=== PATIENT | female | born 1935 | race Caucasian/White ===

== ENCOUNTER 2016-05-28 17:20 | Emergency (ER) | payer OTHER, MEDICAID ==
[2016-05-28] MEDS ORDERED: NS 1,000 ML IV ONE (18:23)
--- NOTE | 2016-05-28 18:23 | EDPHY ---
H & P Stated Complaint: Memory and fatigue issues for several days. Time Seen by Provider: 05/28/16 18:23 HPI/ROS: CHIEF COMPLAINT: Fatigue, mild confusion HISTORY OF PRESENT ILLNESS: The patient presents to the ED with 5 days of fatigue and mild confusion. The patient reportedly has had no focal numbness or weakness. She has had no dysarthria, headache or a facial. The patient has had episodic bouts of confusion according to her son. The patient has not had a fever. She denies any complaints of headache, cough, fever, pain or recent trauma. The patient reportedly was incontinent while sleeping last night. The patient has not been on recent antibiotics. REVIEW OF SYSTEMS: A comprehensive 10 point review of systems is otherwise negative aside from elements mentioned in the history of present illness. Source: Patient - Personal History Current Tetanus/Diphtheria Vaccine: No Current Tetanus Diphtheria and Acellular Pertussis (TDAP): No Tetanus Vaccine Date: 2005 - Medical/Surgical History Hx Asthma: No Hx Chronic Respiratory Disease: No Hx Diabetes: No Hx Cardiac Disease: No Hx Renal Disease: No Hx Cirrhosis: No Hx Alcoholism: No Hx HIV/AIDS: No Hx Splenectomy or Spleen Trauma: No Other PMH: back surgery, ORIF R leg, unknown other issues. - Family History Significant Family History: No pertinent family hx - Social History Smoking Status: Never smoked Alcohol Use: None Drug Use: None - Physical Exam Exam: General Appearance: Alert, no distress Eyes: Pupils equal and round no pallor or injection ENT, Mouth: Mucous membranes moist Respiratory: There are no retractions, lungs are clear to auscultation Cardiovascular: Regular rate and rhythm Gastrointestinal: Abdomen is soft and nontender, no masses, bowel sounds normal Neurological: Alert and oriented x3, 5/5 strength noted all 4 extremities, sensation intact to light touch, normal gait observed in the ED, cranial nerves 2-12 intact Skin: Warm and dry, no rashes Musculoskeletal: Neck is supple nontender Extremities: symmetrical, full range of motion Constitutional: Initial Vital Signs Temperature (C) 37.0 C 05/28/16 17:32 Heart Rate 70 05/28/16 17:32 Respiratory Rate 18 05/28/16 17:32 Blood Pressure 162/94 H 05/28/16 17:32 O2 Sat (%) 97 05/28/16 17:32 O2 Delivery Mode Room Air Allergies/Adverse Reactions: scallops Allergy (Intermediate, Uncoded 04/25/11 11:44) Home Medications: Medication Instructions Recorded CARVEDILOL PHOSPHATE [Coreg Cr] 12.5 mg PO BID 03/18/11 CODEINE SULF [Codeine Sulfate] 60 mg PO ONCE 03/18/11 Cholecalciferol (Vitamin D3) 2,000 unit PO DAILY 03/18/11 [Vitamin D3] Clorazepate Dipotassium 15 mg PO HS PRN 03/18/11 Methocarbamol [Robaxin 750 mg (*)] 750 mg PO TID 03/18/11 Pantoprazole Sodium [Protonix] 40 mg PO DAILY 03/18/11 Pregabalin [Lyrica] 200 mg PO TID 03/18/11 Sertraline HCl [Zoloft] 200 mg PO BID 03/18/11 Ascorbic Acid [Vitamin C 500 mg 1,000 mg PO BID 02/05/12 (OTC)] Docusate Sodium [Colace 100 MG (*)] 200 mg PO DAILY 02/05/12 HYDROcodone/APAP 10/325 [[place] 2 tab PO TID 02/05/12 10/325 (RX)] Levothyroxine [Synthroid 100 mcg 100 mcg PO DAILY 02/05/12 (*)] Pharmacist Completed 02-04-02/05/12 methYLPHENIDATE HCL [Ritalin 10mg 20 mg PO DAILY PRN 02/05/12 (RX)] morphINE IR [morphINE IR 15 mg (*)] 15 - 30 mg PO PRN PRN 02/05/12 Cephalexin [Keflex] 500 mg PO TID #15 cap 05/28/16 Medical Decision Making ED Course/Re-evaluation: The patient presents to the ED with complaints of mild confusion. The patient is noted to be neurologically intact. She is afebrile with stable vital signs. Screening laboratory studies are obtained which demonstrate no evidence of anemia. The patient has no evidence of significant metabolic derangement but does have evidence of a possible urinary tract infection. At this point time I see no evidence of an obvious stroke. I do feel would be reasonable to treat her her mild episodic confusion as a likely consequence of a urinary tract infection. The patient will be discharged home with a 5 day course of Keflex. The patient and her family have been instructed to return to the ED for severe headache, vomiting, focal neurologic symptoms, worsening symptoms or other concerns. Otherwise the patient should follow up with her primary care provider Dr. Demetris Koo for recheck in the next week. Differential Diagnosis: Differential diagnosis considered includes stroke, TIA, metabolic abnormality, renal failure, urinary tract infection - Data Points Laboratory Results: Laboratory Results 05/28/16 18:35 05/28/16 18:35 05/28/16 05/28/16 05/28/16 19:45 18:35 18:35 WBC 4.37 10^3/uL 10^3/uL (3.80-9.50) RBC 4.53 10^6/uL 10^6/uL (4.18-5.33) Hgb 13.9 g/dL g/dL (12.6-16.3) Hct 41.5 % % (38.0-47.0) MCV 91.6 fL fL (81.5-99.8) MCH 30.7 pg pg (27.9-34.1) MCHC 33.5 g/dL g/dL (32.4-36.7) RDW 12.7 % % (11.5-15.2) Plt Count 176 10^3/uL 10^3/uL (150-400) MPV 11.5 fL fL (8.7-11.7) Neut % (Auto) 57.0 % % (39.3-74.2) Lymph % (Auto) 29.1 % % (15.0-45.0) [place] % (Auto) 13.0 % % (4.5-13.0) Eos % (Auto) 0.2 % L % (0.6-7.6) Baso % (Auto) 0.5 % % (0.3-1.7) Nucleat RBC Rel Count 0.0 % % (0.0-0.2) Absolute Neuts (auto) 2.49 10^3/uL 10^3/uL (1.70-6.50) Absolute Lymphs (auto) 1.27 10^3/uL 10^3/uL (1.00-3.00) Absolute Monos (auto) 0.57 10^3/uL 10^3/uL (0.30-0.80) Absolute Eos (auto) 0.01 10^3/uL L 10^3/uL (0.03-0.40) Absolute Basos (auto) 0.02 10^3/uL 10^3/uL (0.02-0.10) Absolute Nucleated RBC 0.00 10^3/uL 10^3/uL (0-0.01) Immature Gran % 0.2 % % (0.0-1.1) Immature Gran # 0.01 10^3/uL 10^3/uL (0.00-0.10) Sodium 142 mEq/L mEq/L (134-144) Potassium 3.7 mEq/L mEq/L (3.5-5.2) Chloride 104 mEq/L mEq/L (97-110) Carbon Dioxide 25 mEq/l mEq/l (22-31) Anion Gap 13 mEq/L mEq/L (8-16) BUN 16 mg/dL mg/dL (7-23) Creatinine 0.8 mg/dL mg/dL (0.6-1.0) Estimated GFR > 60 Glucose 95 mg/dL mg/dL (70-100) Calcium 10.0 mg/dL mg/dL (8.5-10.4) Urine Color YELLOW Urine Appearance HAZY Urine pH 5.0 (5.0-7.5) Ur Specific [place] 1.024 (1.002-1.030) Urine Protein 2+ H (NEGATIVE) Urine Ketones TRACE H (NEGATIVE) Urine Blood NEGATIVE (NEGATIVE) Urine Nitrate NEGATIVE (NEGATIVE) Urine Bilirubin NEGATIVE (NEGATIVE) Urine Urobilinogen NEGATIVE EU EU (0.2-1.0) Ur Leukocyte Esterase 2+ H (NEGATIVE) Urine RBC 15-25 /hpf H /hpf (0-3) Urine WBC 3-5 /hpf H /hpf (0-3) Ur Epithelial Cells TRACE /lpf /lpf (NONE-1+) Urine Bacteria TRACE /hpf H /hpf (NONE SEEN) Urine Mucus TRACE /lpf /lpf (NONE-1+) Ur Culture Indicated? INDICATED H (NI) Urine Glucose NEGATIVE (NEGATIVE) Medications Given: Discontinued Medications Sodium Chloride (Ns) 1,000 mls @ 0 mls/hr IV ONCE ONE PRN Reason: Wide Open Stop: 05/28/16 18:24 Last Admin: 05/28/16 18:45 Dose: 1,000 mls Departure - Departure Disposition: Home, Routine, Self-Care Clinical Impression: Urinary tract infection Condition: Good Instructions: Urinary Traction Infection in Older Adults (ED) Additional Instructions: 1. Your urinalysis demonstrates evidence of a possible urinary tract infection. Please take antibiotics as directed for the next 5 days. 2. Please schedule a follow-up appointment with your primary care provider Dr. Demetris Koo for a recheck in the next week. 3. Please return to the ED for worsening symptoms numbness or weakness in one leg or the other, headache, difficulty with speech or other concerns. Referrals: Demetris Koo MD [Primary Care Provider] - As per Instructions
[2016-05-28 18:50] LABS: % IMMATURE GRANULYOCYTES 0.2 % (0.0-1.1); ABSOLUTE IMMATURE GRANULOCYTES 0.01 10^3/uL (0.00-0.10); ADD DIFF? NO; ADD MORPH? NO; ADD SCAN? NO; ATYPICAL LYMPHOCYTE FLAG 80 (0-99); FRAGMENT RBC FLAG 0 (0-99); HEMATOCRIT 41.5 % (38.0-47.0); HEMOGLOBIN 13.9 g/dL (12.6-16.3); LEFT SHIFT FLG 0 (0-99); LIPEMIA HEMOLYSIS FLAG 80 (0-99); MEAN CELL HEMOGLOBIN 30.7 pg (27.9-34.1); MEAN CELL HEMOGLOBIN CONCENTR. 33.5 g/dL (32.4-36.7); MEAN CELL VOLUME 91.6 fL (81.5-99.8); MEAN PLATELET VOLUME 11.5 fL (8.7-11.7); PLATELET CLUMPS FLAG 10 (0-99); PLATELET COUNT 176 10^3/uL (150-400); RED BLOOD CELL COUNT 4.53 10^6/uL (4.18-5.33); RED CELL DISTRIBUTION WIDTH 12.7 % (11.5-15.2)
[2016-05-28 19:13] LABS: ANION GAP 13 mEq/L (8-16); CARBON DIOXIDE 25 mEq/l (22-31); CHLORIDE 104 mEq/L (97-110); CREATININE 0.8 mg/dL (0.6-1.0); GLOMERULAR FILTRATION RATE > 60; GLUCOSE 95 mg/dL (70-100); POTASSIUM 3.7 mEq/L (3.5-5.2); SODIUM 142 mEq/L (134-144)
[2016-05-28 19:54] LABS: COLOR YELLOW; LEUKOCYTE ESTERASE,URINE 2+ (NEGATIVE); NITRITE,URINE NEGATIVE (NEGATIVE)
[2016-05-28 20:06] LABS: BACTERIA TRACE /hpf (NONE SEEN); MUCUS TRACE /lpf (NONE-1+); RBC,URINE 15-25 /hpf (0-3)
[2016-05-28] MEDS ORDERED: CEPHALEXIN 500 MG CAP PO ONE (20:10)
[2016-05-28 20:17] VITALS: BP 157/129; PULSE 85; RESP 16; TEMP 99.1; O2SAT 94
== END 2016-05-28 20:54 | disposition home or self-care (01) ==
DX: N39.0 Urinary tract infection, site not specified (principal); B96.89 Other specified bacterial agents as the cause of diseases classified elsewhere

== ENCOUNTER 2018-05-21 13:17 | Emergency (ER) | payer OTHER, MEDICAID ==
[2018-05-21] MEDS ORDERED: OXYCODONE/APAP 5/325 TAB PO ONE (13:54)
--- NOTE | 2018-05-21 13:54 | EDPHY ---
H & P Stated Complaint: Back pain Time Seen by Provider: 05/21/18 13:44 HPI/ROS: HPI: This is an 82-year-old female who presents with Chief Complaint: Midback pain Location: Mid back Quality: Pain Duration: 1 week Signs and Symptoms: No bleeding, no radiation, no numbness, no weakness, no tingling, no incontinence, no decreased range of motion, no swelling, + pain, no fever Timing: Acute Severity: Moderate Context: Patient presents with complaints of midline and right sided midback pain that is nonradiating in nature. She reports that has been present x1 week. She normally just takes Advil or ibuprofen for pain and she was "in tears last night due to pain." Patient is accompanied by a caregiver that has been present for 15 years. Patient and caregiver are very poor historians and can not tell me what type of back surgery she had, what level she had operated on or when the back surgery occurred. She denies any recent falls or injuries. She has a history of stress incontinence but no recent change in bowel or bladder habits. She uses a rolling walker at baseline and this has not changed in the last week. Patient denies any dysuria, urinary frequency, urinary hesitancy, urinary urgency, fevers. Automotive Heavy Mechanic at bedside reports that patient at 1 point years ago was on high-dose oxycodone and Lyrica. Was taken off by primary care provider. Modifying Factors: Ibuprofen/Advil with minimal improved Comment: ROS: A comprehensive 10 system review of systems is otherwise negative aside from elements mentioned in the history of present illness. MEDICAL/SURGICAL/SOCIAL HISTORY: Medical history: unknown other issues. Surgical history: Lumbar fusion, open reduction internal fixation right leg Social history: Retired, nonsmoker. CONSTITUTIONAL: Talkative and polite, nontoxic-appearing elderly white female, caregiver at bedside, awake and alert, no obvious distress HEENT: Atraumatic and normocephalic. hard of hearing NECK: supple, no midline tenderness, flexion 45 degrees, extension 45 degrees, right and left lateral flexion 45 degrees. No meningismus. Cardiovascular: Normal S1/S2, regular rate, regular rhythm, without murmur rub or gallop. PULMONARY/CHEST: Symmetrical and nontender. no crepitus. Clear to auscultation bilaterally. Good air movement. No accessory muscle usage. ABDOMEN: Soft, nondistended, nontender, no ecchymosis. PELVIC: no pain with rocking; bilateral hips flexion 125 degrees, extension 30 degrees, with no pain internal rotation and no pain external rotation. BACK: No midline tenderness, no paraspinous spasm, deep tendon reflexes 2/2, no pain with straight leg raise, No foot drop. Achilles reflexes are equal bilaterally. EXTREMITIES: 2/2 pulses, strength 5/5, DIP/PIP/MCP flexion/extension intact with good light touch sensation. no deformities, no clubbing, no cyanosis or edema. NEUROLOGICAL: no focal neuro deficits. GCS 15. Light touch sensation intact. SKIN: Warm and dry, pallor, no erythema. no rash. Good capillary refill. Source: Patient, Family (caregiver) Exam Limitations: No limitations - Personal History Current Tetanus/Diphtheria Vaccine: Unsure Tetanus Vaccine Date: 2005 - Medical/Surgical History Hx Asthma: No Hx Chronic Respiratory Disease: No Hx Diabetes: No Hx Cardiac Disease: No Hx Renal Disease: No Hx Cirrhosis: No Hx Alcoholism: No Hx HIV/AIDS: No Hx Splenectomy or Spleen Trauma: No Other PMH: back surgery, ORIF R leg, unknown other issues. - Social History Smoking Status: Never smoked Constitutional: Initial Vital Signs Temperature (C) 36.7 C 05/21/18 13:21 Heart Rate 72 05/21/18 13:21 Respiratory Rate 18 05/21/18 13:21 Blood Pressure 160/73 H 05/21/18 13:21 O2 Sat (%) 99 05/21/18 13:21 O2 Delivery Mode Room Air Allergies/Adverse Reactions: scallops Allergy (Intermediate, Uncoded 05/21/18 13:25) Home Medications: Medication Instructions Recorded CARVEDILOL PHOSPHATE [Coreg Cr] 12.5 mg PO BID 03/18/11 CODEINE SULF [Codeine Sulfate] 60 mg PO ONCE 03/18/11 Cholecalciferol (Vitamin D3) 2,000 unit PO DAILY 03/18/11 [Vitamin D3] Clorazepate Dipotassium 15 mg PO HS PRN 03/18/11 Methocarbamol [Robaxin 750 mg (*)] 750 mg PO TID 03/18/11 Pantoprazole Sodium [Protonix] 40 mg PO DAILY 03/18/11 Pregabalin [Lyrica] 200 mg PO TID 03/18/11 Sertraline HCl [Zoloft] 200 mg PO BID 03/18/11 Ascorbic Acid [Vitamin C 500 mg 1,000 mg PO BID 02/05/12 (OTC)] Docusate Sodium [Colace 100 MG (*)] 200 mg PO DAILY 02/05/12 HYDROcodone/APAP 10325 [[place] 2 tab PO TID 02/05/12 10/325 (RX)] Levothyroxine [Synthroid 100 mcg 100 mcg PO DAILY 02/05/12 (*)] Pharmacist Completed 02-05-12 02/05/12 methYLPHENIDATE HCL [Ritalin 10mg 20 mg PO DAILY PRN 02/05/12 (RX)] morphINE IR [morphINE IR 15 mg (*)] 15 - 30 mg PO PRN PRN 02/05/12 Cephalexin [Keflex] 500 mg PO TID #15 cap 05/28/16 Lidocaine [Lidoderm] 1 each TP Q12 PRN #10 adh..patch 05/21/18 Medical Decision Making - Diagnostics Imaging Results: Imaging Impressions Lumbar Spine CT 05/21/18 13:53 Impression: 1. Fracture of the hardware is once again noted caudal to the right L5 pedicle. 2. Stable grade 2-grade 3 anterior subluxation of L5 on S1 with associated spinal and neuroforaminal stenoses. 3. Hardware is stable in alignment and position from from T12 to the iliac wings. If symptoms worsen, additional imaging may be necessary. Findings discussed with Lynda Novoa PAC at 15:47 hour, 05/21/2018. Thoracic Spine CT 05/21/18 13:53 Impression: 1. Slight progression of calcifications along the posterior disk margin as well as along the facets posteriorly at T7-T8 with slight increase in severe spinal stenosis. 2. Mild progression of hypertrophic calcifications along the posterior disk margin at T11-T12 with mild spinal stenosis. 3. Stable mild anterior wedging of T6 and T7 segments 4. Mild progression of degenerative disk disease mid and lower thoracic spine. ED Course/Re-evaluation: Vital signs reviewed and stable upon arrival. No neurological deficits or midline tenderness to warrant MRI in the emergency room Due to history of hardware in the back; will obtain CT thoracic without contrast and CT lumbar without contrast Given Percocet x1 1550: By radiologist, Dr. Jaime, who reports CT thoracic CT lumbar spine shows : 1. Slight progression of calcifications along the posterior disk margin as well as along the facets posteriorly at T7-T8 with slight increase in severe spinal stenosis. 2. Mild progression of hypertrophic calcifications along the posterior disk margin at T11-T12 with mild spinal stenosis. 3. Stable mild anterior wedging of T6 and T7 segments 4. Mild progression of degenerative disk disease mid and lower thoracic spine. Patient given Lidoderm patches with Neurosurgery follow-up. No signs of neurovascular compromise/tenting of skin/compartment syndrome/ extremities and joints examined above and below area of concern and are neurovascularly intact/cauda equina syndrome/saddle anesthesia. This patient was seen under the supervision of my secondary supervising physician. I evaluated care for this patient with attending. Differential Diagnosis: Back pain including but not limited to muscular pain, herniated disc, spine fracture, intra-abdominal causes and urinary tract infection. - Data Points Medications Given: Discontinued Medications Oxycodone/Acetaminophen (Percocet 5/325) 1 tab PO EDNOW ONE Stop: 05/21/18 13:55 Last Admin: 05/21/18 14:00 Dose: 1 tab Departure - Departure Disposition: Home, Routine, Self-Care Clinical Impression: Orthopedic hardware present, Neuroforaminal stenosis of lumbosacral spine, Thoracic spinal stenosis, Degeneration of thoracolumbar intervertebral disc Closed subluxation of lumbar spine Qualifiers: Encounter type: initial encounter Qualified Code(s): S33.100A - Subluxation of unspecified lumbar vertebra, initial encounter Condition: Good Instructions: Lumbar Spinal Stenosis (ED), Degenerative Disc Disease (ED) Additional Instructions: Take Tylenol 650 mg every 4 hours and/or Ibuprofen 600 mg every 8 hours with food as needed for pain. Apply Lidoderm patches every 12 hr as needed for pain. Follow-up with Spine/orthopedics for repeat evaluation of chronic thoracic and lower back pain. Referrals: Cat Rayo CNP [Primary Care Provider] - As per Instructions Willie Reyes MD [Medical Doctor] - As per Instructions Prescriptions: Lidocaine [Lidoderm] 1 each TP Q12 PRN #10 adh..patch PRN Reason: Pain, Moderate
[2018-05-21 16:17] VITALS: BP 153/78
== END 2018-05-21 16:17 | disposition home or self-care (01) ==
DX: S33.100A Subluxation of unspecified lumbar vertebra, initial encounter (principal); M99.73 Connective tissue and disc stenosis of intervertebral foramina of lumbar region; M51.35 Other intervertebral disc degeneration, thoracolumbar region; M48.04 Spinal stenosis, thoracic region

== ENCOUNTER 2018-08-13 14:54 | Emergency (ER) | payer OTHER, MEDICAID | END 2018-08-13 16:39 | disposition home or self-care (01) ==